=== PATIENT | female | born 1975 | race Caucasian/White ===

== ENCOUNTER → 2017-04-03 | Outpatient (CLI) | payer BC ==
[~2017-04-03] MED LIST: BUTA1CAP17 PO; FLUO40CA8 PO; LAMO200T35 PO; LEVO1IUD2 INT UTER; PANT40TA PO
== END | disposition home or self-care (01) ==
LOC: C.LAB1850 14:07
PROVIDERS: ATTEND Physical Medicine & Rehabilitation
DX: M46.1 Sacroiliitis, not elsewhere classified (principal)

== ENCOUNTER → 2017-04-26 | Day surgery (SDC) | payer BC ==
[2017-03-30 10:56] VITALS: BMI 31.0
[2017-04-20 09:34] VITALS: Ht 162.6 cm; Wt 81.8 kg
[~2017-04-26] VITALS: Ht 162.6 cm; Wt 81.8 kg
[~2017-04-26] MED LIST changes: +BUPIVACAINE 0.25% 2.5MG/ML PF 10 ML VIAL ONE; +IOPAMIDOL INJ 61% 15 ML VIAL ONE; +LIDOCAINE HCL 1% MPF 5 ML VIAL ONE
--- NOTE | 2017-04-26 15:04 | History & Physical Bridge - [place] ---
H&P Re-Evaluation Bridge Note: I have examined the patient, reviewed the History & Physical and in the interval since the performance of the History & Physical I have noted the following changes of clinical significance: No changes noted
--- NOTE | 2017-04-26 15:23 | [facility] Post Operative Brief Note ---
Immediate Operative Summary Operative Date Apr 26, 2017. Pre-Operative Diagnosis Left Sacroiliitis Post-Operative Diagnosis Same Procedure(s) Performed Left Sacroiliac Joint Injection Surgeon Dr Sheldon Waterman Truck Spotter Surgeon(s) None Estimated Blood Loss 0 Findings Consistent with Post-Op Diagnosis Specimens NA Drains None Anesthesia Type Local Complication(s) none Disposition Disposition:
--- NOTE | 2017-04-26 15:25 | Discharge Instructions ---
Discharge Instructions Date of Service Apr 26, 2017. Visit Reason for Visit: Sacroiliitis Discharge Discharge Diagnosis / Problem: low back pain Discharge Goals Goal(s): Decrease discomfort, Improve function Activity Recommendations Activity Limitations: resume your previous activity Anesthesia . Post Anesthesia Instructions: If you have had General Anesthesia or IV Sedation: * Do not drive today. * Resume driving when surgeon permits. * Do not make important decisions or sign legal documents today. * Call surgeon for: 1. Temperature elevations greater than 101 degrees F. 2. Uncontrollable pain. 3. Excessive bleeding. 4. Persistent nausea and vomiting. 5. Medication intolerance (nausea, vomiting or rash). * For nausea and vomiting use only clear liquids such as: tea, soda, bouillon until nausea subsides, then gradually increase diet as tolerated. * If you have any concerns or questions, call your surgeon's office. If physician is unavailable and it is an emergency, call 911 or go to the nearest emergency room. . Diet Recommendations Recommended Home Diet: resume previous diet Procedures Procedures Performed: Left Sacroiliac Joint Injection Pending Studies Studies pending at discharge: no Medical Emergencies . Who to Call and When: Medical Emergencies: If at any time you feel your situation is an emergency, please call 911 immediately. . Non-Emergent Contact Non-Emergency issues call your: Specialist . . "Provider Documentation" section prepared by Sheldon Waterman. .
--- NOTE | 2017-04-26 15:41 | OPERATIVE REPORT ---
DATE OF OPERATION: 04/26/2017 PREOPERATIVE DIAGNOSES: Inflammatory arthritis, left sacroiliitis. POSTOPERATIVE DIAGNOSES: Same. PROCEDURE: Left sacroiliac joint injection under fluoroscopic guidance. INDICATIONS: The patient is a 42-year-old white female who has received SI joint injections in the past, last one more than 2 years ago. She is having increasing pain and presents today for an injection to provide her with relief. PHYSICAL EXAMINATION: Pleasant female seated comfortably. She has point tenderness to palpation of the left SI joint. She has negative seated straight leg raises, positive Francis maneuver on the left, positive sacral distraction and compression maneuvers on the left. CONSENT: Verbal and written consent was obtained from the patient. Risks and benefits were reviewed. Risks include but are not limited to abscess and allergic reaction. The patient wishes to proceed. DESCRIPTION OF PROCEDURE: The patient was taken back to the special procedures room of the [facility] where she was maintained in a prone position. Backside was cleansed with Betadine x3 and a dry sterile dressing was applied. Fluoroscope was used to identify the left SI joint and the overlying skin was anesthetized with 3 mL of lidocaine 1% with a 25 gauge 1.5-inch needle. A 25 gauge 3.5 inch spinal needle was then directed under fluoroscopic guidance into the joint. There was discomfort when it entered the joint. Isovue 300 contrast 0.25 of mL was injected in which showed it to be intraarticular. She then underwent injection after negative aspiration of 40 mg of Depo-Medrol and 1.5 mL of bupivacaine 0.25%. Injection was well tolerated. DISPOSITION: 1. The patient is taken out into the discharge recovery area where she will be discharged home once discharge criteria have been met. 2. Follow up in the [facility] office in 4 weeks' time. I attest to the content of the Intraoperative Record and any orders documented therein. Any exception s are noted below.
[2017-04-26 15:44] VITALS: BP 105/60; PULSE 64; TEMP 36.7; O2SAT 98
== END | disposition home or self-care (01) ==
LOC: X.SURG 13:51
PROVIDERS: ATTEND Physical Medicine & Rehabilitation
DX: M46.1 Sacroiliitis, not elsewhere classified (principal); L65.9 Nonscarring hair loss, unspecified; M53.3 Sacrococcygeal disorders, not elsewhere classified; F32.9 Major depressive disorder, single episode, unspecified; M19.90 Unspecified osteoarthritis, unspecified site; Z82.49 Family history of ischemic heart disease and other diseases of the circulatory system; Z82.61 Family history of arthritis

== ENCOUNTER → 2017-05-04 | Outpatient (CLI) | payer BC ==
[~2017-05-04] MED LIST changes: -BUPIVACAINE 0.25% 2.5MG/ML PF 10 ML VIAL ONE; -IOPAMIDOL INJ 61% 15 ML VIAL ONE; -LIDOCAINE HCL 1% MPF 5 ML VIAL ONE
== END | disposition home or self-care (01) ==
LOC: C.LAB1850 13:01
PROVIDERS: ATTEND Physician Assistant Medical
DX: M79.1 Myalgia (principal)

== ENCOUNTER 2019-08-29 07:29 | Observation (INO) ==
--- NOTE | 2019-08-14 08:42 | PAT Medication Instructions ---
Medication Instructions Date of Service August 14, 2019 Home Medications fluoxetine 40 mg capsule 40 mg PO HS lamotrigine 25 mg tablet 25 mg PO HS pantoprazole 20 mg tablet,delayed release 20 mg PO HS levonorgestrel 20 mcg/24 hours (5 yrs) 52 mg intrauterine device 1 device IU UD Continue as directed levonorgestrel 20 mcg/24 hours (5 yrs) 52 mg intrauterine device 1 device IU UD Take evening before surgery fluoxetine 40 mg capsule 40 mg PO HS lamotrigine 25 mg tablet 25 mg PO HS pantoprazole 20 mg tablet,delayed release 20 mg PO HS *THEN NOTHING TO EAT OR DRINK AFTER MIDNIGHT* Other Notes If you have any questions please call us at [phone] or [phone] or [phone] or [phone]
--- NOTE | 2019-08-14 10:40 | Anesthesiology Consultation ---
Date of Service August 14, 2019 Assessment & Plan (1) Encounter for pre-operative examination: COVID Status: As of 08/12 nurse assessment, patient denies travel to endemic area, known exposure/sick contacts, symptoms, or testing for coronavirus. test AM DOS Chart Review Chart Review: Acceptable Risk for Surgery and Patient seen in Pre Admission Testing Teaching & Discussion Instructed NPO after midnight before surgery, except medications with 15 cc of water. Medication instructions provided according to the PAT guidelines. History Surgery Operation Date: 08/29/19 07:30 Proposed Procedures p Robotic Total Laparoscopy Hysterectomy - Travis Cabrera MD Height/Weight Height: 5 ft 4 in Weight: 77.2 kg Allergies Allergy/AdvReac Type Severity Reaction Status Date / Time No Known Allergies Allergy Verified 08/14/19 09:01 Medications Home Medications Medication Instructions Recorded Confirmed Last Taken fluoxetine 40 mg capsule 40 mg PO HS 05/24/19 08/14/19 Unknown lamotrigine 25 mg tablet 25 mg PO HS 05/24/19 08/14/19 Unknown pantoprazole 20 mg tablet,delayed 20 mg PO HS 05/24/19 08/14/19 Unknown release levonorgestrel 20 mcg/24 hours (5 1 device IU UD 07/23/19 08/14/19 Unknown yrs) 52 mg intrauterine device Past Medical History Medical History Bipolar 1 disorder Osteoarthritis Sleep apnea Has CPAP but cannot tolerate, does not use Exercise / Class Metabolic Activity II 4-5 Yardwork/Stairs/Walk up hill (Denies CP or SOB with 1 FOS) Past Family History Family History Mother Cervical cancer Uterine cancer Other Hypertension Hypothyroidism Past Surgical History Surgical History H/O cervical spinal arthrodesis (10/31/10) c5-[address] Roberto - no limitations S/P hemorrhoidectomy (~2007) S/P sinus surgery S/P tonsillectomy (~1982) S/P tubal ligation (~2005) Past Anesthesia History No Hx of Anesthesia Complications and No Family Hx of Anesthesia Complications History of PONV No Hx of PONV and No Hx of Motion Sickness Social History Smoking Status: Never smoker Do You Dip or Chew Tobacco: No Hx Alcohol Use: No Hx Substance Use: No substance use type: does not use Review of Systems Pt denies any recent chest pain, shortness of breath, palpitations, cough, fever or URI. Physical Exam Vital Signs BP: 92/55 (pt reports this is baseline, asymptomatic) P: 83bpm SPO2: 98% RA T: 98.7 F R: 14 ENMT Mouth: + dental restorations (upper L crown); no chipped teeth and no loose teeth Thyromental Distance: > or= 3.5 Finger Breadths (4) Mallampati Class: I Neck normal visual inspection; neck extension not limited Respiratory normal respiratory effort Auscultation: lungs clear to auscultation bilaterally Cardiovascular Rate/Rhythm: regular rate and regular rhythm Heart Sounds: no murmur Extremities: no edema Testing Laboratory Results 08/14/19 10:50 Blood Type O Positive 08/14/19 10:50 Antibody Screen NEGATIVE 08/14/19 10:50
[2019-08-14 13:16] LABS: Basophils # (auto) 0.02 K/uL (0-0.2); Basophils % (auto) 0.3 %; Eosinophils # (auto) 0.08 K/uL (0-0.5); Hematocrit (blood only) 39.9 % (37-47); Immature Granulocytes # (auto) 0.03 K/uL (0.00-0.02); Immature Granulocytes % (auto) 0.4 %; Lymphocytes # (auto) 1.76 K/uL (1.2-3.4); Lymphocytes % (auto) 22.9 %; Mean Corpuscular Hemoglobin 29.2 pg (25-34); Mean Corpuscular Hgb Conc 32.6 g/dL (32-36); Mean Corpuscular Volume 89.7 fL (80-100); Mean Platelet Volume 10.6 fL (7.4-10.4); Monocytes # (auto) 0.49 K/uL (0.11-0.59); Monocytes % (auto) 6.4 %; Platelet Count 371 K/uL (130-400); RDW Coefficient of Variation 13.2 % (11.5-14.5); RDW Standard Deviation 43.2 fL (36.4-46.3); Red Blood Count 4.45 M/uL (4.2-5.4); White Blood Count 7.68 K/uL (4.8-10.8)
[~2019-08-29 07:29] MED LIST changes: +BUPIVACAINE 0.5 % 5 MG/1 ML MPF 30ML VIAL ONE; -BUTA1CAP17 PO; +CEFAZOLIN 2000MG 2,000 MG/15 ML SYR IV SCH; -FLUO40CA8 PO; +LACTATED RINGER'S 1,000 ML IV SCH; -LAMO200T35 PO; -LEVO1IUD2 INT UTER; +LR 15ML/HR IV SCH; -PANT40TA PO; +PHENAZOPYRIDINE HCL 100 MG TAB PO SCH
[2019-08-29] MEDS ORDERED: fentaNYL citrate 100 MCG/2 ML VIAL ONE (07:43)
[2019-08-29] MEDS ORDERED: MIDAZOLAM HCL 1 MG/ML 2ML VIAL ONE ×2 (07:43→12:54)
[2019-08-29] MEDS ORDERED: ACETAMINOPHEN 1000 MG/100 ML IV IV ONE (07:45)
[2019-08-29 08:04] LABS: Basophils # (auto) 0.04 K/uL (0-0.2); Basophils % (auto) 0.6 %; Eosinophils # (auto) 0.13 K/uL (0-0.5); Eosinophils % (auto) 1.8 %; Hematocrit (blood only) 40.4 % (37-47); Hemoglobin 13.1 g/dL (12.0-16.0); Immature Granulocytes # (auto) 0.02 K/uL (0.00-0.02); Immature Granulocytes % (auto) 0.3 %; Lymphocytes # (auto) 1.82 K/uL (1.2-3.4); Lymphocytes % (auto) 25.8 %; Mean Corpuscular Hemoglobin 29.4 pg (25-34); Mean Corpuscular Volume 90.8 fL (80-100); Monocytes # (auto) 0.46 K/uL (0.11-0.59); Monocytes % (auto) 6.5 %; Neutrophils # (auto) 4.58 K/uL (1.4-6.5); Platelet Count 378 K/uL (130-400); RDW Coefficient of Variation 12.8 % (11.5-14.5); RDW Standard Deviation 42.9 fL (36.4-46.3); Red Blood Count 4.45 M/uL (4.2-5.4); White Blood Count 7.05 K/uL (4.8-10.8)
[2019-08-29 08:12] LABS: Mean Corpuscular Hgb Conc 32.4 g/dL (32-36)
[2019-08-29] MEDS ORDERED: HYDROmorphone INJ 1 MG/ML SYRINGE IV PRN (08:42)
[2019-08-29] MEDS ORDERED: ONDANSETRON INJ 2 MG/ML 2 ML VIAL IV PRN ×2 (08:42→11:03)
[2019-08-29] MEDS ORDERED: fentaNYL citrate 100 MCG/2 ML VIAL IV PRN (08:42)
[2019-08-29] MEDS ORDERED: SCOPOLAMINE 1.5 MG TDSY TD ONE ×2 (08:42→08:45)
[2019-08-29] MEDS ORDERED: ePHEDrine sulfate 50 MG/ML AMP IV PRN (08:42)
[2019-08-29] MEDS ORDERED: ATROPINE SULFATE 0.1 MG/ML 10ML SYR IV PRN (08:42)
[2019-08-29] MEDS ORDERED: ONDANSETRON INJ 2 MG/ML 2 ML VIAL ONE ×2 (08:50→10:07)
[2019-08-29] MEDS ORDERED: LIDOCAINE HCL 2% 2 ML VIAL/AMP(20MG/ML) INFIL ONE (08:50)
[2019-08-29] MEDS ORDERED: ROCURONIUM BROMIDE 10 MG/ML 5 ML VIAL IV ONE (08:50)
[2019-08-29] MEDS ORDERED: PROPOFOL IV EMULSION 10 MG/ML 20 ML VIAL IV ONE (08:50)
[2019-08-29] MEDS ORDERED: DEXAMETHASONE SOD INJ 4 MG/ML VIAL ONE ×2 (08:50→12:12)
--- NOTE | 2019-08-29 08:55 | History & Physical Bridge Note ---
Date of Service August 29, 2019 History & Physical Bridge Note I have examined the patient, reviewed the History & Physical and in the interval since the performance of the History & Physical I have noted the following changes of clinical significance: no changes noted
[2019-08-29] MEDS ORDERED: HYDROmorphone INJ 2 MG/ML SYR/VIAL ONE (10:07)
[2019-08-29] MEDS ORDERED: TISSEEL FIBRIN SEALANT 4ML TOP ONE (10:09)
[2019-08-29] MEDS ORDERED: GLYCOPYRROLATE 0.2 MG/ML VIAL ONE ×2 (10:11)
[2019-08-29] MEDS ORDERED: NEOSTIGMINE METHYLSULFATE 5 MG/5 ML SYR ONE (10:11)
[2019-08-29] MEDS ORDERED: PHENYLEPHRINE 100MCG/ML 5ML SYR ONE (10:12)
[2019-08-29] MEDS ORDERED: KETOROLAC 30 MG/ML VIAL ONE (10:55)
[2019-08-29] MEDS ORDERED: ACETAMINOPHEN 325 MG TAB PO PRN (11:03)
[2019-08-29] MEDS ORDERED: KETOROLAC 30 MG/ML VIAL IV PRN (11:03)
[2019-08-29] MEDS ORDERED: IBUPROFEN 600 MG TAB PO PRN (11:03)
--- NOTE | 2019-08-29 11:03 | Post Operative Brief Note ---
PG Immediate Post Op with CF Date of Surgery August 29, 2019 Pre & Post Diagnosis Operation Date: 08/29/19 09:10 Pre-Op Diagnosis: Fibroid Uterus, Abnormal Uterine Bleeding Post-Op Diagnosis: Fibroid Uterus, Abnormal Uterine Bleeding I identified the patient and participated in the time-out.: Yes Procedure Operation Date: 08/29/19 09:10 Actual Procedures p Robotic Total Laparoscopy Hysterectomy, Bilateral Salpingectomy, Cystoscopy - Travis Cabrera MD Surgeon Travis Cabrera MD Boat Ride Operator None Estimated Blood Loss 10 Findings Consistent with Post-Op Diagnosis Specimens Specimen Description: A. uterus, cervix, bilateral fallopian tubes Drains Phelan Catheter
[2019-08-29] MEDS ORDERED: SUCCINYLCHOLINE 100MG/5ML SYR IV ONE (12:09)
[2019-08-29] MEDS ORDERED: ESMOLOL HCL INJ 10 MG/ML 10ML VIAL IV ONE (12:09)
--- NOTE | 2019-08-29 12:23 | XRay Report ---
XR chest 1V portable CLINICAL HISTORY: Shortness of breath. COMPARISON STUDY: Chest radiograph and chest CT October 23, 2013. Chest radiograph March 29, 2015. FINDINGS: Incidental note is made of postoperative findings within the cervical spine. Lucency under the hemidiaphragm may reflect pneumoperitoneum. This also subtle lucency of the right hemidiaphragm. No consolidation is noted. Cardiac size is normal. Mediastinal contours are normal. There is mild non specific interstitial prominence. No pneumothorax or pleural effusion is noted. IMPRESSION: 1. No consolidation. 2. Mild nonspecific interstitial prominence. This could reflect pulmonary vascular congestion or less likely an infectious process. No overt pulmonary edema. 3. Suspected lucency under the left hemidiaphragm which favors pneumoperitoneum. This could be correl ated with recent surgery. ACT 112: Negative or not required by law. Electronically signed by: Timothy Walters M.D. 08/29/2019 12:22 PM
--- NOTE | 2019-08-29 14:04 | Anesthesiology Progress Note ---
Date of Service August 29, 2019 Anesthesia Post Procedure Vital Signs Vital Signs: Temp Pulse Pulse Resp BP Pulse Ox 08/29/19 14:05 37.5 C 79 26 H 99/68 L 92 08/29/19 13:55 37.5 C 87 20 95/64 L 94 08/29/19 13:45 100 H 18 109/62 96 08/29/19 13:35 96 H 16 98/61 L 95 08/29/19 13:25 98 H 15 108/53 L 97 08/29/19 13:15 117 H 24 100/45 L 97 08/29/19 13:05 94 H 20 107/48 L 92 08/29/19 12:55 118 H 23 101/58 L 94 08/29/19 12:45 119 H 23 101/62 94 08/29/19 12:35 118 H 19 101/49 L 94 08/29/19 12:25 123 H 26 H 92/56 L 93 08/29/19 12:18 37.4 C 120 H 18 122/53 L 95 08/29/19 08:10 37.2 C 68 18 105/68 98 Pain Intensity Left Ankle: Pain Intensity: 3 Lower Abdomen: Pain Intensity: 6 Transfer of Care Handoff Completed per policy Notes Mental Status: alert / awake / arousable and participated in evaluation Patient Amnestic to Procedure: Yes Nausea / Vomiting: adequately controlled Pain: adequately controlled Airway Patency, RR, SpO2: stable & adequate BP & HR: stable & adequate Hydration State: stable & adequate Anesthetic Complications: no major complications apparent and Pt Satisfied with anesthetic care Notes: The patient is a 44 year old female with a history of Bipolar disorder, OA and EKTA who is s/p Robotic Total Laparoscopy Hysterectomy, Bilateral Salpingectomy, Cystoscopy. I was called into the room after extubation by Anitha the TOOL CRIB ATTENDANT. On arrival, the patient was note to have an oxygen saturation in the low 80s and did not appear to be ventilating. I gave 20mg IV Succinylcholine and was quickly able to mask ventilate the patient to an oxygen saturation of 92%On emergence from anesthesia, after the patient was more awake she stated that she was having difficulty breathing. She initially sounder stridorous, therefore a racemic epinephrine nebulizer was give in the OR. Her lungs sounded clear otherwise. Negative pressure pulmonary edema was suspected given the episode of laryngospasm, therefore a CXR was done in the OR prior to transfer to the PACU. The CXR showed some mild nonspecific interstitial prominence which could represent some pulmonary vascular congestion. At this time the patient was saturating 92-96% on 9L facemask. In recovery, the patient was awake and alert. She does complain of feeling that she has something in her chest to cough out. She is maintaining an oxygen saturation of 92-97% on 9 L facemask. I consulted the hospitalist service. Dr. Schreiber came to the bedside to evaluate the patient. He will be transferring her to telemetry for close monitoring overnight.
--- NOTE | 2019-08-29 14:20 | History & Physical Report ---
Date of Service August 29, 2019 Assessment & Plan (1) Laryngospasm: vs. inducible laryngeal obstruction in setting of untreated obstructive sleep apnea No current obstruction or stridor noted on exam Agree with anesthesia (Dr Natarajan) and suspect mild pulmonary edema on CXR consistent with negative Monitor on med/surg with tele for further airway collapse, stridor, increasing hypoxia. Consider follow up with ENT on discharge for assessment of vocal cords (2) Acute respiratory failure with hypoxia: Aim O2 sats > 94%. Continue on oxymask for now. (3) Bipolar 1 disorder: Continue lamotrigine 25mg HS History of Present Illness Chief Complaint: Shortness of breath, hypoxia Primary Care Provider: Brian Christopher is a 44 year old female who here for elective robotic total laparoscopic hysterectomy and bilateral salpingectomy due to fibroid uterus with abnormal uterine bleeding. Post operatively she was extubated but noted to be in acute respiratory distress and required suxamethonium due to suspected laryngeal spasm. Stridor was auscultated and she was also given. She has no history of dyspnea, GERD, Exercise-induced laryngospasm or asthma. She denies any change to her speech. Allergies Allergy/AdvReac Type Severity Reaction Status Date / Time No Known Allergies Allergy Verified 08/29/19 08:02 Home Medications Home Medications Medication Instructions Recorded Confirmed Type fluoxetine 40 mg capsule 40 mg PO HS 05/24/19 08/29/19 History lamotrigine 25 mg tablet 25 mg PO HS 05/24/19 08/29/19 History pantoprazole 20 mg tablet,delayed 20 mg PO HS 05/24/19 08/29/19 History release levonorgestrel 20 mcg/24 hours (5 1 device IU UD 07/23/19 08/29/19 History yrs) 52 mg intrauterine device Past Med/Surg History Medical History Bipolar 1 disorder Osteoarthritis Sleep apnea Has CPAP but cannot tolerate, does not use Surgical History H/O cervical spinal arthrodesis (10/31/10) c5-[address] Roberto - no limitations S/P hemorrhoidectomy (~2007) S/P sinus surgery S/P tonsillectomy (~1982) S/P tubal ligation (~2005) Family History Mother Cervical cancer Uterine cancer Other Hypertension Hypothyroidism Social History (Updated 05/24/19 @ 12:29 by Ashlyn Magaña) Preferred Language: Malian Communication Ability: Effective Drawing Tracer Required: No Beliefs That Will Affect Care: None Current Living Situation: Spouse Other Information That Helps Us Care for You: No Feels Safe at Home: Yes Safety Concerns: Feels Safe At This Time Smoking Status: Never smoker Do You Dip or Chew Tobacco: No ; Second Hand Exposure: No ; Tobacco Cessation Education Requested by Patient: No Hx Alcohol Use: No Hx Substance Use: No Sunscreen Use: No Results & Data Results & Data ([facility]) Vital Signs (Past 12 Hours) Vital Signs Temp Pulse Pulse Resp BP Pulse Ox 08/29/19 13:55 37.5 C 87 20 95/64 L 94 08/29/19 13:45 100 H 18 109/62 96 08/29/19 13:35 96 H 16 98/61 L 95 08/29/19 13:25 98 H 15 108/53 L 97 08/29/19 13:15 117 H 24 100/45 L 97 08/29/19 13:05 94 H 20 107/48 L 92 08/29/19 12:55 118 H 23 101/58 L 94 08/29/19 12:45 119 H 23 101/62 94 08/29/19 12:35 118 H 19 101/49 L 94 08/29/19 12:25 123 H 26 H 92/56 L 93 08/29/19 12:18 37.4 C 120 H 18 122/53 L 95 08/29/19 08:10 37.2 C 68 18 105/68 98 PG Care Time/CCT Total # of Minutes Spent Total Time Spent with Patient: Total time spent is greater than 50% in coordination of care (as documented) at patient's floor/unit and/or counseling patient: Coding Diagnoses Laryngospasm J38.5 Acute respiratory failure with hypoxia J96.01 Bipolar 1 disorder F31.9
--- NOTE | 2019-08-29 14:59 | Hospitalist Consultation ---
Date of Consultation August 29, 2019 Assessment & Plan (1) History of robot-assisted laparoscopic hysterectomy: s/p elective robotic total laparoscopic hysterectomy, bilateral salpingectomy performed by Dr Cabrera [08/29/2019] 10cc blood loss estimated No significant abdominal pain post operatively to suggest complication with operation itself (2) Laryngospasm: vs. inducible laryngeal obstruction in setting of untreated obstructive sleep apnea and elective intubation for the operation No current obstruction or stridor noted on exam when seen in PACU Agree with anesthesia (Dr Natarajan) and suspect mild pulmonary edema on CXR consistent with postobstructive pulmonary edema in setting of laryngospasm Given low normal BP and reversed postobstructive cause will defer lasix dosing currently COVID-19 testing 3 days prior negative and no pre-surgical symptoms to suggest acute infection Monitor on med/surg with tele for further airway collapse, stridor, increasing hypoxia, although low likelihood of recurrence suspected Consider follow up with ENT on discharge for assessment of vocal cords, dynamic airway collapse (3) Acute respiratory failure with hypoxia: Suspect secondary to post obstructive pulmonary edema as above. Well's score 1.5, low likelihood PE given just came out of operation, alternative diagnosis above much more likely, young age and no family history Low revised cardiac risk score 1, will get EKG and troponin but above diagnosis more likely Aim O2 sats > 94%. Continue on oxymask for now, BiPAP PRN (please call provider if used) (4) Bipolar 1 disorder: Continue fluoxetine 40mg PO HS, lamotrigine 25mg PO HS (5) DVT prophylaxis: SCDs to thigh History of Present Illness Reason for Consultation: Shortness of breath, hypoxia Requesting Physician: Dr Natarajan Attending Physician: Travis Cabrera MD History of Present Illness Huma Christopher is a 44 year old female who here for elective robotic total laparoscopic hysterectomy and bilateral salpingectomy due to fibroid uterus with abnormal uterine bleeding performed by Dr Cabrera today. Post operatively she was extubated but noted to be in acute respiratory distress with hypoxia and required suxamethonium due to suspected laryngeal spasm. Stridor was noted on exam and she was also given racemic epinephrine. Consultation was requested by Dr Natarajan due to continued hypoxia and dyspnea. When seen she was fully awake and alert but requiring 9L O2 via oxymask. She reported feeling significantly short of breath although this was not getting worse or better since waking up from surgery. Only able to speck in short sentences. She has been coughing frequently since waking up and feeling like there is something on her chest to cough up but she cannot get it up. She has no history of dyspnea, GERD, Exercise-induced laryngospasm or asthma. She denies any change to her speech.Prior to the operation she was feeling her normal self with no chest pain or shortness of breath noted on exertion in the last 1-2 weeks. No calf pain or swelling noted. She denies any personal or family history of blood clots or heart disease. No prior chest pain, shortness of breath, orthopnea, PND, claudication, palpitations, syncope or presyncope. She does have a history of obstructive sleep apnea although is intolerant to the mask therefore this is untreated. Pre-op asymptomatic COVID-19 testing 3 days prior negative. Since this test, pre-operatively she denies any cough, fevers/chills, shortness of breath, loss of taste or smell or known COVID-19 exposure. Allergies Allergy/AdvReac Type Severity Reaction Status Date / Time No Known Allergies Allergy Verified 08/29/19 08:02 Home Medications Home Medications Medication Instructions Recorded Confirmed Type fluoxetine 40 mg capsule 40 mg PO HS 05/24/19 08/29/19 History lamotrigine 25 mg tablet 25 mg PO HS 05/24/19 08/29/19 History pantoprazole 20 mg tablet,delayed 20 mg PO HS 05/24/19 08/29/19 History release levonorgestrel 20 mcg/24 hours (5 1 device IU UD 07/23/19 08/29/19 History yrs) 52 mg intrauterine device Patient History Medical History Bipolar 1 disorder Osteoarthritis Sleep apnea Has CPAP but cannot tolerate, does not use Surgical History H/O cervical spinal arthrodesis (10/31/10) c5-[address] oRberto - no limitations S/P hemorrhoidectomy (~2007) S/P sinus surgery S/P tonsillectomy (~1982) S/P tubal ligation (~2005) Family History Mother Cervical cancer Uterine cancer Other Hypertension Hypothyroidism Social History (Updated 05/24/19 @ 12:29 by Ashlyn Magaña) Preferred Language: Syriac Communication Ability: Effective Abseiling Instructor Required: No Beliefs That Will Affect Care: None Current Living Situation: Spouse Other Information That Helps Us Care for You: No Feels Safe at Home: Yes Safety Concerns: Feels Safe At This Time Smoking Status: Never smoker Do You Dip or Chew Tobacco: No ; Second Hand Exposure: No ; Tobacco Cessation Education Requested by Patient: No Hx Alcohol Use: No Hx Substance Use: No Sunscreen Use: No Review of Systems Review of Systems: All systems reviewed & are unremarkable except as noted in HPI & below Physical Exam Constitutional: well developed, well nourished and + acute distress (respiratory) Eyes: + anicteric sclerae; normal pupil size ENMT: external ear and nose normal, oropharynx normal Neck: trachea midline, no thyromegaly Respiratory: + retractions and + cough; does not use accessory muscles, + not able to speak in complete sentence, normal respiratory pattern, not tachypneic, expiratory phase not prolonged, no audible wheezes and no stridor Auscultation: + rhonchi (b/l throughout); no diminished lung sounds, no crackles and no wheezes Cardiovascular: Rate/Rhythm: regular rhythm and + tachycardic Heart Sounds: no murmur Vessels: no JVD Extremities: normal capillary refill; no calf tenderness and no pedal edema Gastrointestinal (Abdomen): normal bowel sounds, soft, nontender, no hepatosplenomegaly Musculoskeletal: no cyanosis or clubbing, extremities motor strength 5/5 Skin: no rashes, warm and dry Neurologic: moves all extremities and awake; no focal motor deficits and not confused Speech / Cognition: normal speech (no hoarseness of voice) Psychiatric: A+Ox3, euthymic affect Lymphatic: no cervical or axillary lymphadenopathy Results & Data Results & Data ([facility]) Vital Signs (Past 12 Hours) Vital Signs Temp Pulse Pulse Resp BP Pulse Ox 08/29/19 14:35 37.5 C 98 H 18 96/69 L 98 08/29/19 14:25 37.5 C 92 H 21 93/57 L 93 08/29/19 14:15 37.5 C 109 H 21 100/59 L 92 08/29/19 14:05 37.5 C 79 26 H 99/68 L 92 08/29/19 13:55 37.5 C 87 20 95/64 L 94 08/29/19 13:45 100 H 18 109/62 96 08/29/19 13:35 96 H 16 98/61 L 95 08/29/19 13:25 98 H 15 108/53 L 97 08/29/19 13:15 117 H 24 100/45 L 97 08/29/19 13:05 94 H 20 107/48 L 92 08/29/19 12:55 118 H 23 101/58 L 94 08/29/19 12:45 119 H 23 101/62 94 08/29/19 12:35 118 H 19 101/49 L 94 08/29/19 12:25 123 H 26 H 92/56 L 93 08/29/19 12:18 37.4 C 120 H 18 122/53 L 95 08/29/19 08:10 37.2 C 68 18 105/68 98 Diagnostic Findings XR chest 1V portable IMPRESSION: 1. No consolidation. 2. Mild nonspecific interstitial prominence. This could reflect pulmonary vascular congestion or less likely an infectious process. No overt pulmonary edema. 3. Suspected lucency under the left hemidiaphragm which favors pneumoperitoneum. This could be correlated with recent surgery. PG Care Time/CCT Total # of Minutes Spent Total Time Spent with Patient: Total time spent is greater than 50% in coordination of care (as documented) at patient's floor/unit and/or counseling patient: Coding Level of Care Code 79607 Inpt Consult Level 5 History Expanded Problem Focused Exam Comprehensive Medical Decision Making High Complexity Diagnoses History of robot-assisted laparoscopic hysterectomy Z90.710 Laryngospasm J38.5 Acute respiratory failure with hypoxia J96.01 Bipolar 1 disorder F31.9 DVT prophylaxis Z29.9
[2019-08-29 16:14] LABS: Basophils # (auto) 0.01 K/uL (0-0.2); Basophils % (auto) 0.1 %; Eosinophils # (auto) 0.01 K/uL (0-0.5); Eosinophils % (auto) 0.1 %; Hemoglobin 12.3 g/dL (12.0-16.0); INR 1.1 (0.9-1.1); Immature Granulocytes # (auto) 0.05 K/uL (0.00-0.02); Immature Granulocytes % (auto) 0.3 %; Lymphocytes # (auto) 0.43 K/uL (1.2-3.4); Lymphocytes % (auto) 2.5 %; Mean Corpuscular Hemoglobin 29.6 pg (25-34); Mean Corpuscular Hgb Conc 33.2 g/dL (32-36); Mean Corpuscular Volume 89.2 fL (80-100); Monocytes % (auto) 2.4 %; Neutrophils # (auto) 16.05 K/uL (1.4-6.5); Neutrophils % (auto) 94.6 %; Partial Thromboplastin Ratio 0.9; Partial Thromboplastin Time 24.1 Seconds (21.0-31.0); Platelet Count 340 K/uL (130-400); Prothrombin Time 11.2 Seconds (9.0-12.0); RDW Coefficient of Variation 12.8 % (11.5-14.5); RDW Standard Deviation 41.7 fL (36.4-46.3); Red Blood Count 4.15 M/uL (4.2-5.4); White Blood Count 16.95 K/uL (4.8-10.8)
[2019-08-29 16:19] LABS: Alanine Aminotransferase 26 U/L (12-78); Albumin Level 3.6 gm/dl (3.4-5.0); Aspartate Aminotransferase 15 U/L (15-37); BUN Creatinine Ratio 14.2 (10-20); Blood Urea Nitrogen 15 mg/dl (7-18); Calcium 8.8 mg/dl (8.5-10.1); Carbon Dioxide 25 mmol/L (21-32); Chloride 107 mmol/L (98-107); Creatinine Clr Calc Pharmacy 72.3 ml/min; Est GFR (African American) 78.6; Est GFR (Non-African American) 67.8; Glucose 123 mg/dl (70-99); Potassium 4.5 mmol/L (3.5-5.1); Sodium 137 mmol/L (136-145)
[2019-08-29 16:24] LABS: Albumin Globulin Ratio 1.2 (0.9-2); Alkaline Phosphatase 78 U/L (45-117); Bilirubin,Total 0.4 mg/dl (0.2-1); Globulin 3.1 gm/dl (2.5-4.0); Total Protein 6.7 gm/dl (6.4-8.2); Troponin I < 0.015 ng/ml (0-0.045)
[2019-08-29] MEDS: CHECK SCOPOLAMINE PATCH PLACEMENT SCH (17:10)
[2019-08-29] MEDS: OXYCODONE/ACETAMINOPHEN 5mg/325mg TAB PO PRN (17:13)
--- NOTE | 2019-08-29 19:25 | Electrocardiogram Report ---
Test Reason : Blood Pressure : / mmHG Vent. Rate : 078 BPM Atrial Rate : 078 BPM P-R Int : 120 ms QRS Dur : 096 ms QT Int : 386 ms P-R-T Axes : 058 030 025 degrees QTc Int : 440 ms Normal sinus rhythm with sinus arrhythmia Normal ECG When compared with ECG of 23-OCT-2013 20:30, No significant change was found Confirmed by Yash Almaguer ([id number]) on 08/29/2019 7:24:48 PM Referred By: Travis Cabrera Confirmed By:Jeremy Almaguer
[2019-08-29] MEDS: DOCUSATE SODIUM 100 MG CAP PO SCH (20:46)
[2019-08-30] MEDS: OXYCODONE/ACETAMINOPHEN 5mg/325mg TAB PO PRN ×3 (00:11→11:50)
[2019-08-30] MEDS: CHECK SCOPOLAMINE PATCH PLACEMENT SCH ×2 (00:42→07:41)
[2019-08-30] MEDS: DOCUSATE SODIUM 100 MG CAP PO SCH (07:43)
--- NOTE | 2019-08-30 10:11 | Gynecologic Progress Note ---
Date of Service August 30, 2019 Assessment & Plan (1) Encounter for postoperative care: Day 1 s/p TLH and cystoscopy. Post operative laryngeal spasm requiring respiratory support. Meeting all post surgical goals. Reporting improving respiration and tolerating conversation on room air. - Patient stable for discharge from a surgical standpoint. - Will await respiratory care plan from medical team. Admission and Anticipated Discharge Date Admission Date: August 29, 2019 Subjective Reporting still feeling short of breath but improved overnight. Able to carry conversation on room air with issue. Meeting all post operative goals. Reporting minimal pain. Physical Exam Gastrointestinal (Abdomen): Percussion/Palpation: abdomen soft; abdomen nontender, no guarding and abdomen not rigid Incisions clean and intact Results & Data ([facility]) Vital Signs (Past 12 Hours) Vital Signs Temp Pulse Pulse Resp BP Pulse Ox 08/30/19 08:00 83 08/30/19 07:34 36.8 C 87 18 116/73 90 08/30/19 03:38 36.7 C 84 18 118/77 98 08/30/19 00:36 96 H 08/29/19 23:01 36.8 C 75 20 103/51 L 95 PG Care Time/CCT Total # of Minutes Spent Total Time Spent with Patient: Total time spent is greater than 50% in coordination of care (as documented) at patient's floor/unit and/or counseling patient: Coding Level of Care Code None Diagnoses Encounter for postoperative care Z48.89
--- NOTE | 2019-08-30 11:32 | Operative Report (OR) ---
DATE OF OPERATION: 08/29/2019 PROCEDURE: Robotic-assisted total laparoscopic hysterectomy, bilateral salpingectomy and cystoscopy. SURGEON: Travis Cabrera MD. PREOPERATIVE DIAGNOSES: 1. Abnormal uterine bleeding. 2. Enlarged fibroid uterus. 3. Pelvic pain. POSTOPERATIVE DIAGNOSES: 1. Abnormal uterine bleeding. 2. Enlarged fibroid uterus. 3. Pelvic pain. 4. Status post procedure. ESTIMATED BLOOD LOSS: 10 mL. DRAINS: Phelan catheter. FLUIDS: Continuous lactated ringer. URINE OUTPUT: 300 mL per Phelan catheter. SURGICAL COMPLICATIONS: None. The patient experienced laryngeal spasm after extubation requiring additional respiratory support. FINDINGS: There was noted to be an enlarged fibroid appearing uterus measuring approximately 10-11 week size. Both ovaries were normal-appearing. Tubal remnants noted from prior tubal ligation. There was noted to be minimal adhesive disease. Bowels and upper abdomen were grossly normal-appearing. DESCRIPTION OF PROCEDURE: The patient was taken to the Operating Room after consents were ensured. Upon presentation, she was properly identified. General endotracheal anesthesia was then obtained. The patient was then prepped and draped in the normal sterile fashion. A preprocedural timeout was performed. A Phelan catheter and VCare uterine manipulator were placed without difficulty and per manager ecommerce specifications. The laparoscopic portion of the case was then initiated. A 12 mm incision was made on the superior aspect of the umbilicus. A Veress needle was inserted through the incision and the abdomen insufflated to 15 mmHg. An optic guided 12 mm trocar was then introduced through the incision and immediate inspection was noted for atraumatic entry. The patient was noted to have a bradycardic event and the abdomen was desufflated to 10 mmHg with resolution of the bradycardic event. The procedure was then continued and 8 mm incisions were made in both right and left lower quadrants and left upper quadrant and trocars were introduced under direct visualization with atraumatic entry noted. The robot was then docked. The left round ligament was then identified, cauterized and serially dissected. The uteroovarian vessel and ligament were identified, serially cauterized and dissected and this continued back to the level of the round ligament and a bladder flap was then created anteriorly to about the midpoint of the VCare cup. The right round ligament was then identified, serially cauterized and dissected. The right uteroovarian ligament was identified, serially cauterized and dissected back to the level of the round ligament. The bladder flap was then continued anteriorly to join the previously initiated bladder flap. The bladder was then dissected off the lower uterine segment and cervix to reveal a clean VCare uterine manipulator cup. The broad ligament was then dissected down to the level of the uterine vessels and the uterine vessels were skeletonized bilaterally. Both uterine vessels were then serially cauterized and dissected. The colpotomy was then initiated anteriorly and continued circumferentially around the cervix, freeing the cervix from the vagina. The uterus was then delivered vaginally. The vaginal cuff was then closed with V-Loc suture in continuing running stitch. The tubal remnants were then dissected and sent to Pathology along with the uterus. There was noted to be excellent hemostasis throughout and Tisseel was placed over all raw edges and vascular pedicles and vaginal cuff. The decision was made to end the laparoscopic portion of the procedure and the robot was undocked. Trocars were left in place. The abdomen was desufflated. A cystoscopy was then performed which was notable for bilateral ureteral efflux and intact bladder. The fascia at the umbilical incision was then reapproximated with 0 Vicryl single interrupted stitch. The skin incisions were reapproximated with 4-0 Monocryl in single interrupted stitch. A 12 mL of lidocaine were distributed throughout the 4 incisions and Dermabond was placed atop all incisions. The patient was then awoken from anesthesia and after initially waking and appearing to be doing well, she experienced laryngeal spasm requiring additional respiratory support, but did not require reintubation. Please see Anesthesia report for further information as this was managed by Anesthesia. I attest to the content of the Intraoperative Record and any orders documented therein. Any exception s are noted below.
--- NOTE | 2019-08-30 11:45 | Anesthesiology Progress Note ---
Date of Service August 30, 2019 Anesthesia Post Procedure Vital Signs Vital Signs: Temp Pulse Pulse Pulse Resp BP Pulse Ox 08/30/19 11:16 36.8 C 92 H 87 18 116/73 90 08/30/19 08:00 83 08/30/19 07:34 36.8 C 87 18 116/73 90 08/30/19 03:38 36.7 C 84 18 118/77 98 08/30/19 00:36 96 H 08/29/19 23:01 36.8 C 75 20 103/51 L 95 08/29/19 19:56 36.9 C 81 20 107/54 L 96 08/29/19 18:00 36.5 C 92 H 18 107/69 96 08/29/19 17:00 36.9 C 88 18 110/68 96 08/29/19 16:30 36.6 C 85 18 101/60 98 08/29/19 16:03 77 08/29/19 16:00 36.6 C 81 18 97/59 L 96 08/29/19 15:35 36.6 C 100 H 18 100/67 97 08/29/19 15:30 36.9 C 99 H 18 107/63 93 08/29/19 14:35 37.5 C 98 H 18 96/69 L 98 08/29/19 14:25 37.5 C 92 H 21 93/57 L 93 08/29/19 14:15 37.5 C 109 H 21 100/59 L 92 08/29/19 14:05 37.5 C 79 26 H 99/68 L 92 08/29/19 13:55 37.5 C 87 20 95/64 L 94 08/29/19 13:45 100 H 18 109/62 96 08/29/19 13:35 96 H 16 98/61 L 95 08/29/19 13:25 98 H 15 108/53 L 97 08/29/19 13:15 117 H 24 100/45 L 97 08/29/19 13:05 94 H 20 107/48 L 92 08/29/19 12:55 118 H 23 101/58 L 94 08/29/19 12:45 119 H 23 101/62 94 08/29/19 12:35 118 H 19 101/49 L 94 08/29/19 12:25 123 H 26 H 92/56 L 93 08/29/19 12:18 37.4 C 120 H 18 122/53 L 95 Pain Intensity Left Ankle: Pain Intensity: 3 Lower Abdomen: Pain Intensity: 8 Transfer of Care Handoff Completed per policy Notes Mental Status: alert / awake / arousable and participated in evaluation Patient Amnestic to Procedure: Yes Nausea / Vomiting: adequately controlled Pain: adequately controlled Airway Patency, RR, SpO2: stable & adequate (reduced SpO2 but adequate) BP & HR: stable & adequate Hydration State: stable & adequate Anesthetic Complications: no major complications apparent and Pt Satisfied with anesthetic care
--- NOTE | 2019-08-30 16:34 | Hospitalist Progress Note ---
Date of Service August 30, 2019 Assessment & Plan (1) History of robot-assisted laparoscopic hysterectomy: s/p elective robotic total laparoscopic hysterectomy, bilateral salpingectomy performed by Dr Cabrera [08/29/2019] 10cc blood loss estimated No significant abdominal pain post operatively to suggest complication with operation itself (2) Laryngospasm: vs. inducible laryngeal obstruction in setting of untreated obstructive sleep apnea and elective intubation for the operation No current obstruction or stridor noted on exam 08/29 COVID-19 testing 3 days prior negative and no pre-surgical symptoms to suggest acute infection Consider follow up with ENT on discharge for assessment of vocal cords, dynamic airway collapse (3) Acute respiratory failure with hypoxia: resolved (4) Bipolar 1 disorder: Continue fluoxetine 40mg PO HS, lamotrigine 25mg PO HS Admission and Anticipated Discharge Date Admission Date: August 29, 2019 Subjective pt has a non productive cough but no furher shortness of breath, still with scant blood tinged sputum, otherwise is non specific Review of Systems Review of Systems: Mild distress and fatigue no headache, blurry or double vision no speech or swallowing issues no chest pain, pressure or palpitations no shortness of breath, still with mild cough no wheezes no abdominal pain, nausea or vomiting, diarrhea or constipation no dysuria, hematuria or frequency no focal joint pain or swelling no back pain, CVA tenderness or radicular pain no bruising, bleeding or rashes no focal signs of weakness or numbness or altered sensation no complaints or anxiety or depression. Physical Exam Physical Exam: The patient appeared well nourished and normally developed. Vital signs as documented. Head exam is normocephalic atraumatic no scleral icterus Neck is without JVD, thyromegaly, or carotid bruits. Lungs are clear to auscultation, no focal loss of breath sounds Cardiac exam, Rhythm is regular.. No murmurs, rubs or gallops. Abdominal exam reveals normal bowel sounds, soft non tender, no masses Extremities are nonedematous and both pedal pulses are normal. Neurologic exam is alert and oriented, no focal loss of strength or sensation Skin is without bruises or rashes Psychologically is without concerns for anxiety or depression Results & Data Results & Data ([facility]) Vital Signs (Past 12 Hours) Vital Signs Temp Pulse Pulse Pulse Resp BP Pulse Ox 08/30/19 11:16 98.2 F 92 H 87 18 116/73 90 06/20/20 08:00 83 08/30/19 07:34 98.2 F 87 18 116/73 90 PG Care Time/CCT Total # of Minutes Spent Total Time Spent with Patient: Total time spent is greater than 50% in coordination of care (as documented) at patient's floor/unit and/or counseling patient: Coding Level of Care Code 85019 Subseq Hosp Care Lvl 2 Diagnoses History of robot-assisted laparoscopic hysterectomy Z90.710 Laryngospasm J38.5 Acute respiratory failure with hypoxia J96.01 Bipolar 1 disorder F31.9
--- NOTE | 2019-08-30 17:22 | Communication Note ---
Date of Service: August 30, 2019 Earlier this morning I called and spoke with Dr. Keen, the applications support lead anesthesiologist. He then went to evaluate the patient on the floor and wrote a note prior to her discharge this morning. Later, I called and spoke to the patient's nurse, however, at that point the patient had already been discharged. She stated the patient felt well with no shortness of breath and was maintaining an oxygen saturation of 93% on room air prior to discharge. I called the patient at her home around 1700 today. The patient stated that she still had some chest heaviness when she takes a deep breath but is using her incentive spirometer. She does report some dyspnea with exertion. I instructed the patient to obtain a pulse oximeter if possible. She stated that her family can try and get her one and she could call or text me with results. I encouraged her to call me anytime with any concerns. I also told her to go to the emergency room with any chest pain, worsening shortness of breath or cough, dizziness, or with any other concerning symptoms. She understands and agrees.
--- NOTE | 2019-09-04 08:58 | Discharge Summary (DS) ---
HOSPITAL COURSE: The patient was admitted for a scheduled total laparoscopic hysterectomy, bilateral salpingectomy and cystoscopy. The procedure itself was surgically uncomplicated. The patient, however, did experience a laryngeal spasm after extubation and required respiratory support. The patient remained in house overnight with care also provided by internal medicine for respiratory care and reported significant improvement by the following morning and was stable for discharge at that time. The patient experienced no additional complications during her hospital course and was discharged home in stable condition. The patient was provided with both written and verbal discharge instructions and was planned for followup at 2 weeks for continued postoperative care. Recommended earlier followup if needed.
== END 2019-08-30 12:15 | disposition home or self-care (01) ==
LOC: ASU 07:29 → 2N 07:29